=== PATIENT | female | born 1990 | race Two or more races ===

== ENCOUNTER 2023-12-05 08:37 | Emergency (ER) | payer MEDICAID ==
[~2023-12-05] VITALS: Ht 149.9 cm; Wt 65.2 kg
[2023-12-05 09:28] LABS: Basophils # (auto) 0.1 10 ^3/uL (0-0.2); Eosinophils # (auto) 0 10 ^3/uL (0-0.8); Eosinophils % (auto) 0.2 % (0.0-7.0); Hematocrit 33.3 % (36.0-46.0); Hemoglobin 10.7 g/dL (12.2-16.2); Lymphocytes # (auto) 2.9 10 ^3/uL (0.4-5.4); Mean Corpuscular Hemoglobin 23.7 pg (28.0-32.0); Mean Corpuscular Hgb Conc. 32.2 g/dL (32.0-36.0); Mean Corpuscular Volume 73.8 fL (80.0-100.0); Neutrophils # (auto) 9.5 10 ^3/uL (1.6-8.6); Red Blood Cells 4.52 10^6/uL (4.0-5.20)
[2023-12-05 09:30] LABS: Basophils % (auto) 0.7 % (0.0-2.0); Lymphocytes % (auto) 21.2 % (10.0-50.0); Monocytes # (auto) 1.3 10 ^3/uL (0-1.3); Monocytes % (auto) 9.3 % (0.0-12.0); Neutrophils % (auto) 68.6 % (37.0-80.0); Red Cell Distribution Width 14.9 % (11.8-14.3); White Blood Cell 13.9 10^3/uL (4.4-10.8)
[2023-12-05 09:57] LABS: Alanine Aminotransferase 15 U/L (7-40); Albumin 4.7 g/dL (3.2-4.8); Alkaline Phosphatase 101 U/L (46-116); Anion Gap 5 (5-15); Aspartate Aminotransferase 10 U/L (13-40); Bilirubin, Total 0.7 mg/dL (0.2-1.0); Calcium 9.7 mg/dL (8.7-10.4); Carbon Dioxide 27 mmol/L (20-30); Chloride 103 mmol/L (98-107); Glucose 101 mg/dL (74-106); Potassium 3.5 mmol/L (3.5-5.1); Sodium 135 mmol/L (136-145); Total Protein 7.6 g/dL (5.7-8.2)
[2023-12-05 10:11] LABS: Urine Bacteria FEW /hpf (None Seen); Urine Blood 2+ /uL (Negative); Urine Protein, UAD TRACE (Negative); Urine Specific Gravity 1.002 (1.001-1.035); Urine Urobilinogen Normal (Negative); Urine WBC 87 /hpf (0 - 5)
[2023-12-05 10:12] LABS: Urine Clarity Hazy (Clear); Urine Color Light-Yellow (Yellow)
[2023-12-05 10:16] LABS: BUN/Creatinine Ratio 7.7 (10.0-20.0); Blood Urea Nitrogen < 5 mg/dL (9-23)
[2023-12-05] MEDS: ONDANSETRON ODT 4 MG TAB PO ONE (10:25)
[2023-12-05 10:26] VITALS: BP 143/91; PULSE 81; RESP 17; TEMP 98.1; O2SAT 98
[2023-12-05] MEDS ORDERED: ZOFR4T PO (12:54)
[2023-12-05] MEDS ORDERED: CIPR-173 PO (12:54)
[2023-12-05] MEDS: CIPROFLOXACIN HCL 500 MG TAB PO ONE (13:03)
== END 2023-12-05 13:03 | disposition home or self-care (01) ==
LOC: ER 08:37 → EEVIPCON 08:37 → ER 13:02
DX: N39.0 Urinary tract infection, site not specified (principal); R11.0 Nausea; Z88.1 Allergy status to other antibiotic agents; Z88.8 Allergy status to other drugs, medicaments and biological substances; Z98.890 Other specified postprocedural states; Z98.51 Tubal ligation status
CPT/HCPCS: 36415; 74176; 76705; 80053; 81001; 83690; 85025; 99284; Q0162